=== PATIENT | female | born 1990 | race Caucasian/White ===

== ENCOUNTER 2021-09-03 09:12 | Emergency (ER) | payer MEDICAID ==
[~2021-09-03] VITALS: Ht 177.8 cm; Wt 86.4 kg
[2021-09-03] MEDS ORDERED: DEXAMETHASONE 6 MG TABLET PO ONE (10:40)
[2021-09-03] MEDS ORDERED: triamcinolone acetonide 40mg/ml inj IM ONE (10:40)
[2021-09-03] MEDS ORDERED: diphenhydrAMINE 50 mg/ml inj IM ONE (10:40)
[2021-09-03 11:38] VITALS: BP 140/117
== END 2021-09-03 12:03 | disposition home or self-care (01) ==
LOC: ER 09:13
DX: T78.40XA Allergy, unspecified, initial encounter (principal); M79.89 Other specified soft tissue disorders; R11.0 Nausea; R19.7 Diarrhea, unspecified; Z90.49 Acquired absence of other specified parts of digestive tract; Y92.89 Other specified places as the place of occurrence of the external cause
CPT/HCPCS: 96372; 99284; J1200; J3301; J8540